=== PATIENT | female | born 1980 | race Caucasian/White ===

== ENCOUNTER 2017-06-14 12:52 | Emergency (ER) | payer SELFPAY ==
[~2017-06-14] VITALS: Ht 167.6 cm; Wt 58.0 kg
[~2017-06-14 12:52] MED LIST: AMOX500T PO; IBUP-232 PO
[2017-06-14 12:58] VITALS: BP 104/63; PULSE 60; RESP 14; TEMP 97.8; O2SAT 100
[2017-06-14] MEDS ORDERED: LIDOCAINE 1%/EPINEPHrine 1:100,000 SOLN 20 ML VIAL INFIL ONE (13:15)
[2017-06-14] MEDS ORDERED: TETANUS/DIPHTHERIA TOXOID ADULT 0.5 ML VIAL IM ONE (13:15)
--- NOTE | 2017-06-14 13:18 | PD ---
HPI Chief Complaint: Skin Problem Time Seen by Provider: 13:00 Travel History International Travel<30 days: No Contact w/Intl Traveler<30days: No Traveled to known affect area: No History of Present Illness HPI 36-year-old female presents to the emergency room for evaluation of an abscess to her left armpit that started about one week ago. It is been getting bigger every day. Patient has been applying triple antibiotic ointment and drawing salve without significant relief in symptoms. Reports moderate pain. Denies fever, chills, nausea, and vomiting. No drainage. Unknown last tetanus. Denies chronic medical conditions or daily medications. PFSH Past Medical History Anxiety: Yes Diminished Hearing: No Gastrointestinal Disorders: No Immunizations Current: Yes Tetanus Vaccination: Unknown Influenza Vaccination: No ?: Not LMP: 06/14/17 : 2 Para: 0 Miscarriage: 1 : 1 Past Surgical History Surgical History: No Previous Surgery Other Surgery: No Social History Alcohol Use: No Tobacco Use: Yes (/2 PPD) Substance Use: No Allergies-Medications (Allergen,Severity, Reaction): Coded Allergies: Codeine (Verified Adverse Reaction, Mild, NAUSEA/VOMITING, 01/11/16) Reported Meds & Prescriptions Reported Meds & Active Scripts Active Bactrim DS (Sulfamethoxazole-Trimethoprim) 800-160 Mg Tab 1 Tab PO BID Review of Systems Except as stated in HPI: all other systems reviewed are Neg Physical Exam Narrative GENERAL: Well-nourished, well-developed female in no acute distress. Afebrile. Ambulatory. SKIN: Focused skin assessment warm/dry. There is an indurated area in the left axilla which measures about 3 cm in diameter. It is fluctuant but there is no pointing or drainage. There is a zone of inflammation around it but no lymphangitis. HEAD: Normocephalic. EYES: No scleral icterus. No injection or drainage. NECK: Supple, trachea midline. No JVD or lymphadenopathy. CARDIOVASCULAR: Regular rate and rhythm without murmurs, gallops, or rubs. RESPIRATORY: Breath sounds equal bilaterally. No accessory muscle use. PSYCHIATRIC: No delusional thought processes. No hallucinations. Data Data Last Documented VS Vital Signs Date Time Temp Pulse Resp B/P Pulse Ox O2 Delivery O2 Flow Rate FiO2 06/14/17 12:58 97.8 60 14 104/63 100 Room Air Orders Lidocai-Epi 1%-1:100,000 Inj (Xylocaine- (06/14/17 13:15) Tetanus/Diphtheria Tox Adult (Tetanus/Di (06/14/17 13:15) MDM Medical Decision Making Medical Screen Exam Complete: Yes Emergency Medical Condition: Yes Medical Record Reviewed: Yes Differential Diagnosis Abscess, folliculitis, hidradenitis suppurativa Narrative Course 36-year-old female presents to the emergency room for evaluation of an abscess to her left armpit that started 1 week ago. Patient is afebrile and well- appearing in the emergency room. Vital signs stable. Physical exam reveals a 3 cm abscess to the left axilla without lymphangitis. Mild fluctuance. Abscess was drained, see procedure note for details. Patient discharged with prescription for Bactrim and told to follow-up with a primary care physician or return to the emergency room for worsening symptoms. She understands and agrees to plan. Procedures Procedure Narrative INCISION AND DRAINAGE OF ABSCESS: The area was prepped and was sterilely draped. A subcutaneous wheal of 1% lidocaine with epinephrine with a total number 2 mL was used to anesthetize the area properly. A number 11 scalpel was used to make a 1 cm incision across the area of the abscess. The abscess was drained, complex loculations were broken down, and irrigated with normal saline. Cultures were obtained. Quarter inch iodoform packing was placed in the wound. Sterile dressing applied. Patient advised to have packing removed in two days. Diagnosis Primary Impression: Abscess Referrals: Primary Care Physician Patient Instructions: Abscess (ED), General Instructions Additional Instructions: Rest and drink plenty of fluids. Take Bactrim as directed, until gone. Follow up with a primary care physician. Return to emergency room for worsening symptoms, as discussed. Med/Other Pt SpecificInfo: Prescription(s) given Scripts Sulfamethoxazole-Trimethoprim (Bactrim DS)800-160 Mg Tab1 Tab PO BID #20 TAB Ref 0 Prov:Domingo Reynolds MD 06/14/17 Disposition: 01 DISCHARGE HOME Condition: Stable Shahnaz Mclaughlin Jun 14, 2017 13:18
[2017-06-14] MEDS ORDERED: BACT800T5 PO (13:19)
== END 2017-06-14 13:39 | disposition home or self-care (01) ==
LOC: PHED 12:52
DX: L02.412 Cutaneous abscess of left axilla (principal); F17.210 Nicotine dependence, cigarettes, uncomplicated; Z23 Encounter for immunization
CPT/HCPCS: 10061; 10121; 90471; 90714